=== PATIENT | male | born 1945 | race Two or more races ===

== ENCOUNTER 2022-08-08 08:08 | Inpatient (IN) | payer MEDICARE ==
[~2022-08-08] VITALS: Ht 180.3 cm; Wt 93.0 kg
[2022-08-08] MEDS ORDERED: DIPHENHYDRAMINE 50MG/ML VIAL ONE (09:25)
[2022-08-08] MEDS ORDERED: FAMOTIDINE 20MG/2ML VIAL IV ONE (09:26)
[2022-08-08] MEDS ORDERED: HYDROCORTISONE SOD SUCCINATE 250 MG/2 ML VIAL ONE (09:26)
[2022-08-08] MEDS ORDERED: ASPIRIN/SOD BICARB/CITRIC ACID 324MG TAB EFF ONE (10:24)
[2022-08-08] MEDS ORDERED: CARV25TA47 MT (11:08)
[2022-08-08] MEDS ORDERED: HYDR25TA MT (11:08)
[2022-08-08] MEDS ORDERED: ATOR40TA70 MT (11:08)
[2022-08-08] MEDS ORDERED: ASPI-1497 MT (11:08)
[2022-08-08] MEDS ORDERED: LOSA100T32 MT (11:08)
[2022-08-08] MEDS ORDERED: TAMS-11 MT (11:08)
[2022-08-08] MEDS ORDERED: SUCR1TAB MT (11:08)
[2022-08-08] MEDS ORDERED: FAMO40TA7 MT (11:08)
[2022-08-08] MEDS ORDERED: PANT40TA51 MT (11:08)
[2022-08-08] MEDS ORDERED: MIDAZOLAM HCL 2 MG/2 ML VIAL ONE (13:18)
[2022-08-08] MEDS ORDERED: FENTANYL CITRATE/PF 50MCG/ML 2ML VIAL ONE (13:18)
[2022-08-08] MEDS ORDERED: HEPARIN 1000 UNITS/ML 10ML ONE (13:18)
[2022-08-08] MEDS ORDERED: IODIXANOL 320MG/ML 100 ML BOTTLE IV ONE (13:19)
[2022-08-08] MEDS ORDERED: LIDOCAINE HCL/PF 1% 10 MG/ML 5ML VIAL ONE (13:46)
[2022-08-08] MEDS ORDERED: HYDRALAZINE 20MG/ML VIAL ONE (14:41)
[2022-08-08] MEDS ORDERED: CLOPIDOGREL 75MG TABLET ONE (14:41)
[2022-08-08] MEDS ORDERED: MORPHINE SULFATE 2 MG/ML CPJ (NOT FOR IM USE) IV PRN (15:00)
[2022-08-08] MEDS ORDERED: ATROPINE SULFATE 1MG/10ML SYR IV PRN (15:00)
[2022-08-08] MEDS ORDERED: CLOPIDOGREL 75MG TABLET PO NR (15:00)
[2022-08-08] MEDS ORDERED: ONDANSETRON HCL 4MG/2ML INJ IV PRN (15:00)
[2022-08-08] MEDS ORDERED: SODIUM CHLORIDE 0.45% 1,000 ML IV ONE (15:00)
[2022-08-08] MEDS ORDERED: ACETAMINOPHEN 325MG TABLET PO PRN (15:00)
[2022-08-08] MEDS ORDERED: HYDRALAZINE 20MG/ML VIAL IV PRN (15:00)
[2022-08-08] MEDS ORDERED: NALOXONE HCL 0.4MG/ML VIAL IV PRN (15:15)
[2022-08-08 15:32] VITALS: BP 163/78
[2022-08-08 16:00] VITALS: BP 160/78
[2022-08-08] MEDS ORDERED: DEXTROSE 50% WATER 50ML SYRINGE IV PRN ×2 (16:00)
[2022-08-08] MEDS: BLOOD SUGAR DIAGNOSTIC STRIP TEST SCH ×2 (16:28→22:05)
[2022-08-08] MEDS ORDERED: BLOOD SUGAR DIAGNOSTIC STRIP TEST SCH (16:50)
[2022-08-08] MEDS ORDERED: INFLUENZA VACCINE 05/PF 0.5 ML SYRINGE IM ONE (17:00)
[2022-08-08] MEDS: INSULIN LISPRO 100 UNITS/ML SUBCUT SCH ×2 (17:11→22:30)
[2022-08-08] MEDS ORDERED: INSULIN LISPRO 100 UNITS/ML SUBCUT SCH (17:20)
[2022-08-08 20:00] VITALS: BP 169/87
[2022-08-08] MEDS ORDERED: ATORVASTATIN CALCIUM 40MG TABLET PO SCH (21:00)
[2022-08-08] MEDS ORDERED: AMLODIPINE 5MG TABLET PO SCH (21:00)
[2022-08-08 21:37] LABS: CLARITY URINE CLEAR (CLEAR); COLOR URINE YELLOW (YELLOW); KETONES URINE TRACE (NEGATIVE); LEUKOCYTE ESTERASE URINE NEGATIVE (NEGATIVE); NITRITE URINE NEGATIVE (NEGATIVE); OCCULT BLOOD URINE NEGATIVE (NEGATIVE); PROTEIN URINE 1+ (NEGATIVE); SPECIFIC GRAVITY URINE 1.018 (1.005-1.030); UROBILINOGEN URINE 0.2 E.U./dL (0.2-1.0)
[2022-08-08] MEDS: CARVEDILOL 12.5MG TABLET PO SCH (22:20)
[2022-08-09] VITALS: BP 152/85
[2022-08-09 04:00] VITALS: BP 139/76
[2022-08-09] MEDS: BLOOD SUGAR DIAGNOSTIC STRIP TEST SCH ×2 (06:56→11:50)
[2022-08-09] MEDS: INSULIN LISPRO 100 UNITS/ML SUBCUT SCH ×2 (06:56→12:20)
[2022-08-09 07:20] LABS: BASOPHILS % 0.6 % (0.0-2.0); EOSINOPHILS % 0.3 % (0.0-5.0); HEMATOCRIT. 35.9 % (42.0-52.0); HEMOGLOBIN. 11.7 g/dL (14.0-18.0); LYMPHOCYTES % 18.8 % (20.0-50.0); MEAN CORPUSCULAR HEMOGLOBIN 21.2 pg (28.0-32.0); MEAN CORPUSCULAR VOLUME 65.4 fL (80.0-94.0); MEAN PLATELET VOLUME 7.6 fl (7.4-10.4); MONOCYTES % 11.6 % (2.0-8.0); NEUTROPHILS % 68.7 % (40.0-76.0); PLATELET 220 x1000/uL (130-400); RED CELL DISTRIBUTION WIDTH 17.2 % (11.6-14.6)
[2022-08-09 08:00] VITALS: BP 168/91
[2022-08-09] MEDS ORDERED: CLOPIDOGREL 75MG TABLET PO SCH (09:00)
[2022-08-09] MEDS ORDERED: LOSARTAN POTASSIUM 50 MG TABLET PO SCH (09:00)
[2022-08-09] MEDS ORDERED: ASPIRIN 325MG TABLET PO SCH (09:00)
[2022-08-09] MEDS ORDERED: TAMSULOSIN HCL 0.4MG SR CAPSULE PO SCH (09:00)
[2022-08-09] MEDS: CARVEDILOL 12.5MG TABLET PO SCH (09:17)
[2022-08-09] MEDS ORDERED: HYDRALAZINE HCL 25MG TABLET PO SCH (10:30)
[2022-08-09] MEDS ORDERED: AMLODIPINE 5MG TABLET PO SCH (10:30)
[2022-08-09 11:46] VITALS: BP 159/78
[2022-08-09 12:00] VITALS: BP 160/78
[2022-08-10 09:11] LABS: IMMUNOGLOBULIN A 302 mg/dL (61-437); IMMUNOGLOBULIN G 1078 mg/dL (603-1613); IMMUNOGLOBULIN M 88 mg/dL (15-143)
== END 2022-08-09 17:00 | disposition home or self-care (01) | DRG 247 ==
LOC: CCL 08:08 → 3WST 15:30
PROVIDERS: ADMIT Specialist; ATTEND Specialist
PROC: 027034Z Dilation of Coronary Artery, One Artery with Drug-eluting Intraluminal Device, Percutaneous Approach (ICD-10-PCS; principal; 2022-08-08)
PROC: 4A023N7 Measurement of Cardiac Sampling and Pressure, Left Heart, Percutaneous Approach (ICD-10-PCS; 2022-08-08)
PROC: B2111ZZ Fluoroscopy of Multiple Coronary Arteries using Low Osmolar Contrast (ICD-10-PCS; 2022-08-08)
DX: I25.10 Atherosclerotic heart disease of native coronary artery without angina pectoris (principal); N17.9 Acute kidney failure, unspecified; N18.4 Chronic kidney disease, stage 4 (severe); E78.5 Hyperlipidemia, unspecified; I12.9 Hypertensive chronic kidney disease with stage 1 through stage 4 chronic kidney disease, or unspecified chronic kidney disease; E11.22 Type 2 diabetes mellitus with diabetic chronic kidney disease; K21.9 Gastro-esophageal reflux disease without esophagitis; N28.1 Cyst of kidney, acquired; Z20.822 Contact with and (suspected) exposure to COVID-19; Z79.4 Long term (current) use of insulin; Z88.8 Allergy status to other drugs, medicaments and biological substances; Z79.82 Long term (current) use of aspirin; Z79.899 Other long term (current) drug therapy; Z90.79 Acquired absence of other genital organ(s); Z91.041 Radiographic dye allergy status; Z82.49 Family history of ischemic heart disease and other diseases of the circulatory system
CPT/HCPCS: 36415; 71045; 74176; 80048; 81003; 82570; 82784; 82962; 83036; 83735; 84100; 84156; 85025; 86160; 86334; 90686; 92928; 93005; 93458; C1769; C1874; C1887; C1893; J0360; J1200; J1644; J1720; J1815; J2250; J3010; J3490; Q9967